=== PATIENT | female | born 1945 | race Caucasian/White ===

== ENCOUNTER 2016-06-01 23:50 | Emergency (ER) | payer MEDICARE, BC ==
[~2016-06-01 23:50] MED LIST: ASAB PO; ATEN50 PO; CARDCD180 PO; CAT1 PO; COZAAR100 MG PO; ELIQUIS 5 MG TAB5 MG PO; FLONASE NAS; GLUCCHONDR PO; HARD NAILS PO; HCTZ25B PO; HYCET 7.5 MG-3473 ML PO; METHOC500B PO; MOBIC15 MG PO; MOBIC7.5 PO; MULTIPLE VIT PO; NEXIUM40 PO; NORCO1 TA2; PAX20 PO; PRAVACHOL40 MG PO; PRILO PO; SPIRO50 PO; ULTRAM50 PO; VESICARE5 PO
== END 2016-06-02 02:30 | disposition home or self-care (01) ==
LOC: ER 23:50
PROC: 0S9D3ZZ Drainage of Left Knee Joint, Percutaneous Approach (ICD-10-PCS; principal; 2016-06-01)
DX: M25.462 Effusion, left knee (principal); I10 Essential (primary) hypertension; I48.91 Unspecified atrial fibrillation; Z88.5 Allergy status to narcotic agent; Z88.1 Allergy status to other antibiotic agents; Z79.82 Long term (current) use of aspirin; Z79.899 Other long term (current) drug therapy
CPT/HCPCS: 99284; J1170

== ENCOUNTER 2016-06-11 06:16 | Inpatient (IN) | payer MEDICARE, BC ==
[2016-06-09 17:29] LABS: BASOPHILS 0.2 %; BASOPHILS ABSOLUTE 0.02 10/3/uL (0.0-0.16); EOSINOPHILS 2.2 %; EOSINOPHILS ABSOLUTE 0.25 10/3/uL (0.0-0.53); HEMOGLOBIN 12.4 g/dL (12.0-16.0); IMMATURE GRANULOCYTES 0.4 %; IMMATURE GRANULOCYTES ABSOLUTE 0.05 10/3/uL (0.0-0.11); LYMPHOCYTES 18.9 %; MEAN CORPUSCULAR HEMOGLOB 28.2 pg (26.0-34.0); MEAN CORPUSCULAR VOLUME 85.6 fL (80-100); MEAN PLATELET VOLUME 9.8 fL (9.2-13.0); MONOCYTES 8.4 %; MONOCYTES ABSOLUTE 0.94 10/3/uL (0.21-1.20); NEUTROPHILS 69.9 %; NEUTROPHILS ABSOLUTE 7.77 10/3/uL (2.02-8.40); PLATELET COUNT 345 10/3/uL (150-400); RBC DISTRIBUTION WIDTH 14.1 % (12.0-16.0); RED CELL COUNT 4.39 10/6/uL (4.0-5.6)
[2016-06-09 17:33] LABS: HEMATOCRIT 37.6 % (36.0-48.0); MANUAL DIFF NO %; WHITE BLOOD CELLS 11.1 10/3/uL (4.5-10.5)
[2016-06-09 17:41] LABS: INTERNATIONAL NORMAL RATI 1.1 UNITS (-); PROTIME (NOT ORD) 14.3 SEC (12.0-14.5)
[2016-06-09 17:42] LABS: PARTIAL THROMBO TIME 30.9 SEC (22.5-37.2)
[2016-06-09 17:47] LABS: BUN (BLOOD UREA NITROGEN) 12 MG/DL (6-23); CALCIUM, SERUM 9.1 MG/DL (8.5-10.4); CHLORIDE, SERUM 102 MMOL/L (96-112); CO2 (CARBON DIOXIDE) 26 MMOL/L (24-34); CREATININE 0.96 MG/DL (0.55-1.02); GFR AFRICAN AMERICAN 69 ML/MIN (>=60); GFR NON AFRICAN AMERICAN 60 ML/MIN (>=60); GLUCOSE, SERUM 107 MG/DL (60-99); POTASSIUM, SERUM 3.7 MMOL/L (3.5-5.3); SGOT(AST) 43 U/L (5-40); SGPT(ALT) 84 U/L (5-65); SODIUM, SERUM 137 MMOL/L (135-148); TOTAL BILIRUBIN 0.6 MG/DL (0-1.2); TOTAL PROTEIN 7.9 G/DL (6.0-8.5)
[2016-06-09 17:48] LABS: A/G RATIO 0.6 (0.7-1.9); ALBUMIN 3.1 G/DL (3.5-5.0); ALKALINE PHOSPHATASE 204 U/L (45-117); GLOBULIN 4.8 G/DL (2.5-4.1)
[2016-06-09 19:50] LABS: ASCORBIC ACID (UR NOT ORDER) NEG (NEG); BILIRUBIN, URINE NEGATIVE (NEG); KETONE, URINE NEGATIVE (NEG); LEUKOCYTE ESTERASE(NOT OR NEG (NEG); WBC (NOT ORDERED) (RFLEX) 4 (0-5)
--- NOTE | ~2016-06-11 | HP ---
History And Physical [id number] [place]. [address] NAME: DAYANNA MASTERS : 45 STATUS : ADM IN [facility]#: [id number] AGE: 70 ADM/REG DATE : 06/11/16 MR#: [id number] REPORT SERV DATE: 06/11/16 DICTATED BY: KAR COLON III DATE: 06/11/16 REPORT STATUS : Draft TRANSCRIBED BY: MODDania DATE: 06/11/16 DATE OF ADMISSION: 06/11/2016 CHIEF COMPLAINT: Left knee pain. HISTORY: The patient is a 70-year-old white female, who complains of pain in her left knee and has so for the past several years. It has gotten worse here recently to where she is having difficulty ambulating short distances, complained of rest pain, night pain, all unrelieved with Tylenol or aspirin. She takes Eliquis for atrial fib, cannot tolerate nonsteroidal anti-inflammatories. X-rays reveal advanced osteoarthritis of her knee, particularly in the patellofemoral joint where it is bone on bone, and she is admitted for left total knee arthroplasty. Risks, benefits, and expected outcomes have been explained, but not limited to blood clots, infection, neurovascular injuries, patella maltracking problems, and component failures. 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 PREVIOUS SURGERIES: Include partial hysterectomy, cholecystectomy, left foot surgery, right total knee arthroplasty in 2015, and hiatal hernia. MEDICATIONS: Include losartan, Eliquis 5 mg twice a day, pravastatin, 81 mg of aspirin, Tylenol, omeprazole, and tramadol. SOCIAL HISTORY: Nonsmoker and nondrinker. PHYSICAL EXAMINATION: GENERAL: She is alert and oriented x3. VITAL SIGNS: Stable. HEENT: Normocephalic, atraumatic. Pupils are equal, round, and reactive to light and accommodation. Extraocular muscles are intact. NECK: Supple. CHEST: Clear. HEART: Consistent with atrial fibrillation. ABDOMEN: Benign, soft, nontender. Positive bowel sounds. ORTHOPEDIC: Examination reveals marked tenderness to the left knee. She has a moderate-sized effusion consistent with a hemarthrosis. She has painful patellofemoral joint. She lacks about 15 degrees to 20 degrees of terminal extension, limited flexion to about 115 degrees, 1+ varus and valgus stress. DIAGNOSTIC DATA: X-rays reveal advanced osteoarthritis of her knee, particularly the patellofemoral joint where she has advanced patellofemoral arthritis. PLAN: Admission for a left total knee arthroplasty. History And Physical [place] [address] [place]. [address] NAME: DAYANNA MASTERS : 45 STATUS : ADM IN [facility]#: [id number] AGE: 70 ADM/REG DATE : 06/11/16 MR#: [id number] REPORT SERV DATE: 06/11/16 DICTATED BY: KAR COLON III DATE: 06/11/16 REPORT STATUS : Draft TRANSCRIBED BY: EDDA DATE: 06/11/16 BROOKS/EDDA Kar Colon III, M.D. / [id number] CC: Kar Colon III, M.D.
--- NOTE | ~2016-06-11 | OP ---
Record Of Operation [facility] [address] [place]. [address] NAME: DAYANNA GRAY : 45 STATUS : ADM IN PAT#: [id number] AGE: 70 ADM/REG DATE : 06/11/16 MR#: [id number] REPORT SERV DATE: 06/11/16 DICTATED BY: KAR COLON III DATE: 06/11/16 REPORT STATUS : Draft TRANSCRIBED BY: MODL DATE: 06/11/16 DATE OF PROCEDURE: 06/11/2016 PREOPERATIVE DIAGNOSIS: Advanced osteoarthritis, left knee. POSTOPERATIVE DIAGNOSIS: Advanced osteoarthritis, left knee with hemarthrosis. SURGICAL PROCEDURE PERFORMED: Left total knee arthroplasty using the [employer] Adduplex System with a size 6 femoral component, size 4 tibial tray, +7 polyethylene insert, and a 38 mm patella, posterior stabilized design. SIGHTSEEING GUIDE: Sussy Gray. ANESTHESIA: General. ANTIBIOTICS: Ancef 2 g. COMPLICATIONS: None. TOURNIQUET TIME: 15 minutes. CRYSTALLOID: 1200 mL. ESTIMATED BLOOD LOSS: 75 mL. DRAINS: None. Tranexamic acid 2 g. PROCEDURE IN DETAIL: The patient was brought to the operative room, placed on the table in supine position, and general anesthesia was induced. 2 g was administered intravenously in the operating room. An adductor nerve block was provided per Anesthesia Department for postoperative pain control. Pneumonic tourniquet was applied to the left upper thigh. Left lower extremity was prepped and draped in the usual sterile fashion. Exsanguinated with a 6 inch Esmarch and tourniquet was inflated to 350 mmHg. Assuring good anesthesia, a standard midline incision was made directly over the left knee followed by medial arthrotomy. The patella was everted and the knee was flexed to 90 degrees. Medial and lateral menisci were debrided along the anterior cruciate ligament. Abundant hemarthrosis was encountered and this was debrided with rongeurs and suction. A 5 mm step drill was used to enter the femoral canal and intramedullary guide was placed on 5 degrees valgus for left knee. This was pinned to the distal femur and the anterior and posterior cuts were made along with the angled chamfer cuts. Distal femur was trialed to a size 6 femoral component, marked along the epicondylar axis. Multi-cutting guide was placed in these ramos, pinned to the distal femur, and the anterior and posterior cuts made along with the angled chamfer cuts. The intercondylar cutting guide was next centered and pinned to the distal femur. A reciprocating saw was used to make this cut for the posterior stabilized system. Trial Record Of Operation [facility] [address] [place]. [address] NAME: DAYANNA GRAY : 45 STATUS : ADM IN PAT#: [id number] AGE: 70 ADM/REG DATE : 06/11/16 MR#: [id number] REPORT SERV DATE: 06/11/16 DICTATED BY: KAR COLON III DATE: 06/11/16 REPORT STATUS : Draft TRANSCRIBED BY: MODDania DATE: 06/11/16 reduction was carried out noting good cuts in all planes. Attention was turned toward the tibial side. The external tibial cutting guide was aligned with the second metatarsal ray and pinned to the proximal tibia. Oscillating saw was used to make this cut with a neutral degree cutting block. Trial reduction was carried out with a size 4 tibial baseplate and a +7 polyethylene insert. Full extension was achieved. Nice flexion to 130 degrees, flexion and extension gaps were symmetrical. The undersurface of the patella was then resurfaced by transecting 6 to 7 mm of bone. It was very thin. A 38 mm patellar template was used to place three anchor holes in the undersurface of the patella. The tibia was then prepared with a drill and a punch. Two packs of methylmethacrylate were vacuum mixed, pressurized in the good dry cancellous bone. The real components were placed. Excess cement was removed. Tourniquet was released after 52 minutes. Bleeding was controlled with Bovie electrocautery. Thorough irrigation was carried out throughout the procedure pulse lavage system. No drains were used. The medial arthrotomy was closed with #2 Ethibond suture and #1 Vicryl suture in 90-degree flexed position. Subcutaneous tissue was closed with 2-0 Vicryl and skin was closed using adam. Sterile Aquacel dressing was applied. Patient tolerated the procedure well, brought to recovery room in satisfactory condition. There were no intraoperative, postoperative, or anesthetic complications. All instrument, needle, sponge, and lap counts were correct. TB/MODL Kar Colon III, M.D. / [id number] CC: Kar Colon III, M.D.
[2016-06-12 07:01] LABS: HEMOGLOBIN 10.6 g/dL (12.0-16.0)
[2016-06-12 07:06] LABS: HEMATOCRIT 32.4 % (36.0-48.0)
[2016-06-13 11:08] LABS: HEMATOCRIT 31.1 % (36.0-48.0); HEMOGLOBIN 10.5 g/dL (12.0-16.0)
[2016-06-13] MEDS ORDERED: ELIQUIS 2.5 MG2.5 MG PO (12:06)
[2016-06-13] MEDS ORDERED: PERCOCET 10/3251 TAB PO (12:06)
== END 2016-06-13 14:16 | disposition home or self-care (01) | DRG 470 ==
LOC: SDC/OF 06:16 → PACU 10:27 → 3SO 11:26
PROVIDERS: Orthopaedic Surgery
PROC: 0SRD0J9 Replacement of Left Knee Joint with Synthetic Substitute, Cemented, Open Approach (ICD-10-PCS; principal; 2016-06-11 07:30)
DX: M17.12 Unilateral primary osteoarthritis, left knee (principal); I10 Essential (primary) hypertension; E78.5 Hyperlipidemia, unspecified; K21.9 Gastro-esophageal reflux disease without esophagitis; M79.7 Fibromyalgia
CPT/HCPCS: 36415; 71020; 80053; 81001; 85014; 85018; 85025; 85610; 85730; 86850; 86900; 86901; 87641; 88305; 88311; 97110-GP; 97116-GP; 97161-GP; 97165-GO; A9270-GY; C1776; G8978-CK-GP; G8979-CI-GP; J0330; J0690; J1170; J1885; J2250; J2270; J2274; J2370; J2405; J2710; J2795; J3010